=== PATIENT | male | born 1950 | race Caucasian/White ===

== ENCOUNTER 2016-11-11 13:18 | Inpatient (IN) | payer OTHER ==
[~2016-11-11] VITALS: Ht 180.3 cm; Wt 166.9 kg
--- NOTE | ~2016-11-11 | HC ---
[facility] [place] [address] CONSULTATION Name: DINORA BECKFORD Room #: 463-P ADM IN M.R.#: [id number] Admission: 11/11/16 Attend Phys: Joy Goode Discharge: Date of : 46 Report #: [id number] THIS REPORT FOR: //name// CC: FAM physician/PCP Joy Goode DATE OF SERVICE: 11/12/2016 PERSONAL PHYSICIAN: Joy Goode MD. CHIEF COMPLAINT: Left lower extremity ulceration with lymphedema. HISTORY OF PRESENT ILLNESS: This is a 66-year-old white male with a longstanding history of lymphedema and morbid obesity, who presented through the Emergency Department for cellulitis of his left leg with associated diabetic ketoacidosis. The patient himself is an extremely poor historian and states that he has had chronic edema in his lower extremities and is followed in the [facility] in [place]. The patient; however, states he admits that he is not compliant with wrapping his legs or keeping them elevated. The patient states that the left lower extremity started having increased drainage, redness and warmth several days ago, he was started on doxycycline, but then started having increasing amount of swelling, redness and further breakdown. At that time, the patient went to [facility], where he was then transferred to [facility] for further care, we were asked to assist in the care of his wound while he is here. PAST MEDICAL HISTORY: Significant for chronic lymphedema, type 2 diabetes, hypertension. CURRENT MEDICATIONS: Multiple, I reviewed the patient's medication list. DRUG ALLERGIES: None. SOCIAL HISTORY: The patient does not smoke or drink alcohol. FAMILY HISTORY: Not pertinent to current medical condition. REVIEW OF SYSTEMS: CONSTITUTIONAL: The patient denies fevers and chills prior to coming to the Emergency Department. NEUROLOGIC: The patient has overall generalized weakness and fatigue, but no isolated weakness in arms or legs. EYES: No complaints. ENT: No complaints. CARDIAC: The patient denies chest pain, palpitations; however, has chronic lower extremity edema associated with the lymphedema. [address] [place] [address] CONSULTATION Name: DINORA BECKFORD Room #: 463-P [facility] IN M.R.#: [id number] Admission: 11/11/16 Attend Phys: Joy Goode Discharge: Date of : 48 Report #: [id number] RESPIRATORY: The patient denies shortness breath, cough or wheezes. GASTROINTESTINAL: The patient complains of nausea, but no vomiting or diarrhea or abdominal pain. GENITOURINARY: The patient denies urgency or frequency. MUSCULOSKELETAL: The patient has pain in both legs. SKIN: There is a chronic lymphedema changes of both lower extremities with open ulceration on the left lower extremity and signs of cellulitis. PHYSICAL EXAMINATION: VITAL SIGNS: Stable. The patient is afebrile. GENERAL: This is alert and oriented x [address], but not to time, white male, who is in ktam-bo-umyrjatq distress secondary to pain. HEENT: Normocephalic, atraumatic. Mucous membranes are dry. Pupils are round. Sclerae white. NECK: Shows no JVD or masses. BACK: Nontender. LUNGS: Clear. HEART: Regular, without murmur. ABDOMEN: Obese, soft, nontender. EXTREMITIES: The patient moves all extremities; however, has decreased movement in lower extremities secondary to the massive amount of size. The patient has lymphatic nodules noted on bilateral lower extremities, left greater than right. On the left lower extremity, there is an open ulceration which measures 15.0 x 12.0 x 0.1 cm. There is copious amounts of yellowish serous drainage without significant foul odor, it is tender to palpation, the rest of the leg itself was warm to touch and tender, distal pulses appeared to be 1 and 2+ in dorsalis pedis and posterior tibial. Bilateral heels are intact. NEUROLOGIC: Cranial nerves 2-12 are grossly intact. Motor and sensory grossly intact. LABORATORY DATA: White count 13.4. Hemoglobin 10.5, albumin is 2.9. IMPRESSION: 1. Acute cellulitis in left lower extremity with associated ulceration. 2. Chronic lymphedema, bilateral lower extremities. 3. Type 2 diabetes. 4. Morbid obesity. 5. Protein-calorie malnutrition, moderate, with albumin 2.9. 6. Generalized debility. PLAN: At this time, we will start patient on pulse lavage daily just to clean the wound base of the slough that is located within it and then have this covered with silver nitrate moistened Kerlix to decrease the amount of excessive drainage. We will use Kerlix and Krish wrap from toes to knee after Xeroform and ABD will be placed over the wounds itself. ____ keep the patient to elevate his legs as much as possible, try to start physical and occupational therapy as [facility] [address] [place] [address] CONSULTATION Name: DINORA BECKFORD Room #: 463-P ADM IN M.R.#: [id number] Admission: 11/11/16 Attend Phys: Mathewashly Sen Russel Discharge: Date of : 48 Report #: [id number] patient can tolerate. Also spoke to patient about maximizing his oral protein and supplements for healing. We will continue all his other current medications and we will continue to follow him while he is here. By: 1315 1452 Gavino Preciado MD /nt
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
[2016-11-11 13:00] VITALS: BP 144/66
[2016-11-11 14:19] LABS: HEMATOCRIT 36.1 % (42.0-52.0); HEMOGLOBIN 11.3 gm/dL (14.0-18.0); MCH 25.7 pg (26.0-34.0); MCHC 31.2 g/dL (28.0-37.0); MCV 82.2 fL (80.0-100.0); RBC 4.39 mil/uL (4.50-6.00); WBC 17.5 thou/uL (4.0-11.0)
[2016-11-11 14:27] LABS: CALCIUM 8.9 mg/dL (8.5-10.1); CREATININE 1.6 mg/dL (0.7-1.3)
[2016-11-11] MEDS ORDERED: HYDROCODONE-AP1 EAC6 PO (14:31)
[2016-11-11] MEDS ORDERED: LASIX 40 MG TAB40 M2 PO (14:32)
[2016-11-11 14:33] LABS: ALBUMIN 2.9 g/dL (3.4-5.0); TOTAL BILIRUBIN 0.5 mg/dL (<0.1-1.0); TOTAL PROTEIN 9.4 g/dL (6.4-8.2)
[2016-11-11] MEDS ORDERED: POTASSIUM20 PO (14:38)
[2016-11-11] MEDS ORDERED: LISINOPRIL20 MG PO (14:39)
[2016-11-11] MEDS ORDERED: METFORMIN HCL500 MG PO (14:40)
[2016-11-11] MEDS ORDERED: TOPROL XL100 MG PO (14:42)
[2016-11-11] MEDS ORDERED: LEVEMIR SUBQ (14:50)
[2016-11-11 15:46] VITALS: BP 162/71
[2016-11-11 20:33] VITALS: BP 126/62
[2016-11-11 23:43] VITALS: BP 115/70
[2016-11-12 04:51] VITALS: BP 134/69
[2016-11-12 06:29] LABS: HEMATOCRIT 33.8 % (42.0-52.0); HEMOGLOBIN 10.5 gm/dL (14.0-18.0); MCH 25.1 pg (26.0-34.0); MCHC 31.1 g/dL (28.0-37.0); MCV 80.6 fL (80.0-100.0); RBC 4.19 mil/uL (4.50-6.00); RDW 23.9 % (10.5-14.5); WBC 13.4 thou/uL (4.0-11.0)
[2016-11-12 06:41] LABS: CALCIUM 8.8 mg/dL (8.5-10.1); CREATININE 1.7 mg/dL (0.7-1.3); POTASSIUM 3.6 mmol/L (3.5-5.1)
[2016-11-12 07:18] VITALS: BP 129/57
[2016-11-12 12:18] VITALS: BP 133/64
[2016-11-12 16:11] VITALS: BP 136/53
[2016-11-12 19:44] VITALS: BP 131/77
[2016-11-13 03:56] VITALS: BP 120/68
[2016-11-13 06:39] LABS: HEMATOCRIT 31.9 % (42.0-52.0); HEMOGLOBIN 10.5 gm/dL (14.0-18.0); MCV 78.6 fL (80.0-100.0); RBC 4.06 mil/uL (4.50-6.00); RDW 24.3 % (10.5-14.5); WBC 8.9 thou/uL (4.0-11.0)
[2016-11-13 06:51] LABS: CALCIUM 8.1 mg/dL (8.5-10.1); CREATININE 1.9 mg/dL (0.7-1.3); POTASSIUM 4.1 mmol/L (3.5-5.1)
[2016-11-13 07:36] VITALS: BP 124/59
[2016-11-13 11:57] VITALS: BP 146/64
[2016-11-13 16:33] VITALS: BP 152/87
[2016-11-13 18:55] VITALS: BP 158/76
[2016-11-14 04:00] VITALS: BP 110/54
[2016-11-14 05:59] LABS: HEMATOCRIT 34.6 % (42.0-52.0); HEMOGLOBIN 11.1 gm/dL (14.0-18.0); MCH 25.9 pg (26.0-34.0); MCV 80.8 fL (80.0-100.0); RBC 4.28 mil/uL (4.50-6.00); WBC 7.9 thou/uL (4.0-11.0)
[2016-11-14 06:07] LABS: CALCIUM 8.3 mg/dL (8.5-10.1); CREATININE 1.5 mg/dL (0.7-1.3); POTASSIUM 3.6 mmol/L (3.5-5.1)
[2016-11-14 08:55] VITALS: BP 108/62
[2016-11-14 12:20] VITALS: BP 108/61
[2016-11-14 17:20] VITALS: BP 115/63
[2016-11-14 19:38] VITALS: BP 114/68
[2016-11-15 04:05] VITALS: BP 117/61
[2016-11-15 09:00] VITALS: BP 121/71
[2016-11-15 09:57] LABS: HEMATOCRIT 34.1 % (42.0-52.0); HEMOGLOBIN 11.1 gm/dL (14.0-18.0); MCHC 32.6 g/dL (28.0-37.0); MCV 79.7 fL (80.0-100.0); PLATELET COUNT 305 thou/uL (150-400); RBC 4.27 mil/uL (4.50-6.00); RDW 23.8 % (10.5-14.5); WBC 7.6 thou/uL (4.0-11.0)
[2016-11-15 10:01] LABS: MANUAL DIFF YES
[2016-11-15 10:15] LABS: CALCIUM 8.8 mg/dL (8.5-10.1); CREATININE 1.4 mg/dL (0.7-1.3); POTASSIUM 3.9 mmol/L (3.5-5.1)
[2016-11-15 10:46] LABS: ABSOLUTE NEUTROPHILS 4.5 thou/uL (1.4-8.2); ANISOCYTOSIS 3+; METAMYELOCYTES 2 %; TOTAL CELL COUNT 100
[2016-11-15 10:47] LABS: MICROCYTES 2+; POLYCHROMASIA SLIGHT
[2016-11-15 12:20] VITALS: BP 128/70
[2016-11-15 16:16] VITALS: BP 120/63
[2016-11-15 19:09] VITALS: BP 112/56
[2016-11-16 04:58] LABS: CALCIUM 8.3 mg/dL (8.5-10.1); CREATININE 1.3 mg/dL (0.7-1.3); POTASSIUM 3.9 mmol/L (3.5-5.1)
[2016-11-16 05:10] LABS: HEMATOCRIT 32.7 % (42.0-52.0); HEMOGLOBIN 10.6 gm/dL (14.0-18.0); MCH 25.8 pg (26.0-34.0); MCHC 32.5 g/dL (28.0-37.0); MCV 79.3 fL (80.0-100.0); RBC 4.13 mil/uL (4.50-6.00); RDW 24.2 % (10.5-14.5); WBC 8.6 thou/uL (4.0-11.0)
[2016-11-16 08:00] VITALS: BP 143/78
[2016-11-16 12:00] VITALS: BP 116/69
[2016-11-16 16:00] VITALS: BP 131/71
[2016-11-16 20:07] VITALS: BP 120/60
[2016-11-17 05:07] VITALS: BP 125/76
[2016-11-17 08:00] VITALS: BP 116/67
[2016-11-17 11:45] VITALS: BP 113/63
[2016-11-17 16:00] VITALS: BP 134/74
[2016-11-17 19:49] VITALS: BP 135/71
[2016-11-18 03:06] LABS: GLYCOHEMOGLOBIN (HGB A1C) 9.9 % (4.8-5.6)
[2016-11-18 03:13] VITALS: BP 101/56
[2016-11-18 06:31] LABS: HEMATOCRIT 32.5 % (42.0-52.0); HEMOGLOBIN 10.4 gm/dL (14.0-18.0); MCH 25.6 pg (26.0-34.0); MCHC 32.1 g/dL (28.0-37.0); MCV 79.8 fL (80.0-100.0); RBC 4.07 mil/uL (4.50-6.00); RDW 23.2 % (10.5-14.5); WBC 10.5 thou/uL (4.0-11.0)
[2016-11-18 06:42] LABS: CALCIUM 8.5 mg/dL (8.5-10.1); CREATININE 1.2 mg/dL (0.7-1.3); POTASSIUM 3.9 mmol/L (3.5-5.1)
[2016-11-18 07:58] VITALS: BP 114/58
[2016-11-18] MEDS ORDERED: HYDROCODONE-AP1 EAC6 PO (15:14)
[2016-11-18] MEDS ORDERED: HUMALOG100 UNIT/1 SUBQ (15:15)
[2016-11-18] MEDS ORDERED: LANTUS100 UNIT/M SUBQ (15:15)
[2016-11-18] MEDS ORDERED: KEFLEX500 MG PO (15:36)
[2016-11-18 17:00] VITALS: BP 119/68
[2016-11-18 17:06] VITALS: BP 119/68
== END 2016-11-18 20:30 | DRG 871 ==
LOC: 4S 13:18 → 4W 13:18
PROVIDERS: Hospitalist; Internal Medicine Infectious Disease
DX: A41.9 Sepsis, unspecified organism (principal); E13.10 Other specified diabetes mellitus with ketoacidosis without coma; L03.116 Cellulitis of left lower limb; L97.929 Non-pressure chronic ulcer of unspecified part of left lower leg with unspecified severity; E44.0 Moderate protein-calorie malnutrition; N17.9 Acute kidney failure, unspecified; Z68.43 Body mass index [BMI] 50.0-59.9, adult; E66.01 Morbid (severe) obesity due to excess calories; I87.2 Venous insufficiency (chronic) (peripheral); E13.622 Other specified diabetes mellitus with other skin ulcer; I10 Essential (primary) hypertension; I89.0 Lymphedema, not elsewhere classified; Z87.81 Personal history of (healed) traumatic fracture
CPT/HCPCS: 10047

== ENCOUNTER 2016-11-25 17:44 | Inpatient (IN) | payer OTHER ==
[~2016-11-25] VITALS: Ht 180.3 cm; Wt 176.0 kg
--- NOTE | ~2016-11-25 | HC ---
[facility] [place] [address] CONSULTATION Name: DINORA BECKFORD Room #: 423-1 [facility] IN M.R.#: [id number] Admission: 11/25/16 Attend Phys: Joy Goode Discharge: 12/01/16 Date of : 48 Report #: [id number] THIS REPORT FOR: //name// CC: FAM unknown Joy Goode DATE OF CONSULT: 11/26/2016. ATTENDING PHYSICIAN: Dr. Goode. REASON FOR CONSULTATION: Elevated creatinine and hyperkalemia. HISTORY OF PRESENT ILLNESS: The patient with longstanding diabetes, very severe lymphedema chronically infected lower extremities, was hospitalized here last week, his infected left leg was treated, he was sent to a facility. He had been on lisinopril, furosemide, potassium, by history, although it is unclear that he was actually taking those and then was off the lisinopril and the hospital here it was restarted for discharge. His creatinine has risen from 1.2 up to 2.5, now 2.3 and potassium gómez from normal up to 6.8 on the lisinopril. He has an indwelling Ceron catheter. PAST MEDICAL HISTORY: Longstanding diabetes, peripheral neuropathy, past hypertension, apparently urinary retention and also has a history of umbilical hernia and ankle injury. REVIEW OF SYSTEMS: GENERAL: He has been feeling very weak. SKIN: He has a very severe changes, lymphedema of lower extremities with very severe thickened skin changes. He is rather obese. HEENT: Eye sight is intact. Hearing intact. No mouth ulcers. ENDOCRINE: Positive for diabetes. RESPIRATORY: Denies shortness of breath, pleuritic pain or cough, no hemoptysis. CARDIAC: Denies cardiac history. No angina or heart failure, palpitations or arrhythmias. GASTROINTESTINAL: Has very good appetite. No nausea, vomiting, diarrhea or bloody stools. GENITOURINARY: Has the indwelling catheter, I am not sure for how along. NEUROLOGIC: Has peripheral neuropathy, no history of seizure or stroke. FAMILY HISTORY: No renal disease. SOCIAL HISTORY: Former smoker. PHYSICAL EXAMINATION: GENERAL: This is a relatively pleasant and alert patient in no distress at the current time. [facility] [address] [place] [address] CONSULTATION Name: DINORA BECKFORD Room #: 423-1 DIS IN M.R.#: [id number] Admission: 11/25/16 Attend Phys: Joy Goode Discharge: 12/01/16 Date of : 46 Report #: [id number] SKIN: Remarkable for the marked changes in the lower extremities as mentioned. SKELETAL: Rather obese. HEENT: Extraocular movements are full. Vision intact. Hearing intact. Mucous membranes are moist. NECK: Supple. CHEST: Clear to auscultation. HEART: Regular. ABDOMEN: Very obese. EXTREMITIES: Show very disfigured edematous, lymphedematous legs. NEUROLOGIC: No focal findings. LABORATORY DATA: Potassium was 6.8 down to 6.0. There was absolutely no EKG changes of hyperkalemia, the creatinine is 2.5 down to 2.3, up from 1.2 a week ago. ASSESSMENT AND PLAN: Acute kidney injury. He remained on the lisinopril, the diuretics, etc. Blood pressure dropped substantially with all that, down in this is decreased renal perfusion. Of note, blood pressure substantially higher when he was in here last week, lisinopril has been discontinued. I suspect he will get better rather if he has got some Kayexalate, we will change out his Ceron. I do not believe this will amount to too terrible much we will have to keep him off of lisinopril and potassium in the future. <ELECTRONICALLY SIGNED> By: Guy Thompson MD 12/02/16 1154 1033 1138 Guy Thompson MD /nt
--- NOTE | ~2016-11-25 | EKG ---
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
--- NOTE | ~2016-11-25 | EKG ---
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
--- NOTE | ~2016-11-25 | HC ---
[facility] [place] [address] [address] CONSULTATION Name: SHAKEELDINORA Room #: 423-1 ADM IN M.R.#: [id number] Admission: 11/25/16 Attend Phys: Joy Goode Discharge: Date of : 46 Report #: [id number] THIS REPORT FOR: //name// CC: FAM unknown Joy Goode DATE OF SERVICE: 11/26/2016 CHIEF COMPLAINT: Bilateral lower extremity ulcerations. HISTORY: This is a 66-year-old male patient with whom I am familiar, who was recently hospitalized and has been readmitted. I have been asked to see him with regard to lymphedema and lower extremity ulcerations. The patient currently lives at [facility], was noted to have high potassium as well as a history of diabetes. He has been admitted for ongoing medical management. I have been asked to see him with regard to specifically wound care. The patient notes swelling and some pain in his lower extremities. He is noting some mild shortness of breath at this time and some pain in his legs. PAST MEDICAL HISTORY: Positive for lymphedema of lower extremities, hyperkalemia, type 2 diabetes mellitus, history of DKA. MEDICATIONS: Include Keflex, hydrocodone, insulin, Lasix, potassium, lisinopril, metformin, metoprolol. SOCIAL HISTORY: Negative for alcohol or tobacco use or recreational drug use. FAMILY HISTORY: Noncontributory. REVIEW OF SYSTEMS: CONSTITUTIONAL: Has fever, chills, weight loss. NEUROLOGICAL: The patient has focal weakness. ENT: The patient denies earache, nasal drainage or sore throat. CARDIOVASCULAR: The patient denies chest pain, palpitations or diaphoresis. PULMONARY: The patient denies cough, shortness of breath. GASTROINTESTINAL: The patient denies nausea, diarrhea or abdominal pain or gas. ORTHOPEDIC: The patient notes pain, swelling, drainage of bilateral lower extremities. GENITOURINARY: The patient denies frequency or urgency of urination. Denies dysuria. He does complain of scrotal swelling. NEUROLOGICAL: The patient has focal weakness, numbness and tingling. PSYCHIATRIC: The patient denies anxiety, irritability or depression. Other systems in a 12-point review of systems are negative. PHYSICAL EXAMINATION: VITAL SIGNS: At this time include pulse 99, respiratory rate 20, blood pressure [address] [address] CONSULTATION Name: DINORA BECKFORD Room #: 423-1 ADM IN M.R.#: [id number] Admission: 11/25/16 Attend Phys: Joy Goode Discharge: Date of : 46 Report #: [id number] 85/45, temperature 98.6. GENERAL: This is a chronically ill-appearing male patient who appears to be in mild discomfort. HEENT: Normocephalic. Nose and throat are clear. NECK: Supple. LUNGS: Diminished. HEART: Regular rhythm. ABDOMEN: Obese, nontender. GENITOURINARY: The patient a very large scrotum. The penis is unable to be fully visualized due to the scrotal edema. EXTREMITIES: Lower extremities demonstrate edema up through his mid thighs. He has draining ulcerations on the posterior portions of both calves; neither area appeared to be overtly infected. The patient's distal pulses are palpable, but diminished due to the edema. CLINICAL IMPRESSION: 1. Ulcerations bilateral calves. 2. Lymphedema, bilateral lower extremities. 3. Diabetes mellitus. 4. Hyperkalemia. RECOMMENDATIONS: At this point in time, we will recommend a solution of silver nitrate to be applied with moist gauze to the open areas and lower extremities. Recommend lymphedema therapy for control lymphedema of both lower extremities as well as the scrotal region. I appreciate being asked to see the patient in consultation. <ELECTRONICALLY SIGNED> By: Garrick Hackett MD 11/27/16 0911 1719 2247 Garrick Hackett MD /nt
[~2016-11-25 17:44] MED LIST: HUMALOG100 UNIT/1 SUBQ; HYDROCODONE-AP1 EAC6 PO; KEFLEX500 MG PO; LANTUS100 UNIT/M SUBQ; LASIX 40 MG TAB40 M2 PO; LEVEMIR SUBQ; LISINOPRIL20 MG PO; METFORMIN HCL500 MG PO; POTASSIUM20 PO; TOPROL XL100 MG PO
[2016-11-25 17:54] VITALS: BP 101/39
[2016-11-25 18:23] LABS: HEMATOCRIT 33.2 % (42.0-52.0); HEMOGLOBIN 10.4 gm/dL (14.0-18.0); MCH 24.9 pg (26.0-34.0); MCHC 31.3 g/dL (28.0-37.0); MCV 79.6 fL (80.0-100.0); PLATELET COUNT 361 thou/uL (150-400); RBC 4.17 mil/uL (4.50-6.00); RDW 22.4 % (10.5-14.5); WBC 10.3 thou/uL (4.0-11.0)
[2016-11-25 18:31] LABS: MANUAL DIFF YES
[2016-11-25 18:32] LABS: CALCIUM 8.7 mg/dL (8.5-10.1); CREATININE 2.5 mg/dL (0.7-1.3)
[2016-11-25 18:34] LABS: POTASSIUM 6.8 mmol/L (3.5-5.1)
[2016-11-25 19:19] LABS: ABG SAMPLE TYPE VENOUS; BE(vivo) -11.4 mmol/L (-2 to +3); HCO3 15.9 mmol/L (22.0-26.0); LACTATE 2.94 mmol/L (0.5-2.0); O2(CT) 10.6 mL/dL (15.0-23.0); O2Hb VENOUS 63.2 (65.0-85.0); PCO2 VENOUS 41.3 mmHg (41.0-51.0); PO2 VENOUS 39.6 mmHg (35.0-45.0); sO2 VENOUS 63.4 % (65.0-85.0); tCO2 17.2 mmol/L (24.0-30.0)
[2016-11-25 19:21] LABS: STICK SITE VENOUS
[2016-11-25 19:24] LABS: ABSOLUTE NEUTROPHILS 8.9 thou/uL (1.4-8.2); TOTAL CELL COUNT 100
[2016-11-25 19:25] LABS: ANISOCYTOSIS 2+; MICROCYTES 1+
[2016-11-25 20:51] VITALS: BP 91/44
[2016-11-25 21:04] LABS: POTASSIUM 5.9 mmol/L (3.5-5.1)
[2016-11-25 21:05] LABS: CALCIUM 8.1 mg/dL (8.5-10.1); CREATININE 2.4 mg/dL (0.7-1.3)
[2016-11-26 04:00] VITALS: BP 114/54
[2016-11-26 05:23] LABS: MCH 25.2 pg (26.0-34.0); MCHC 31.3 g/dL (28.0-37.0); MCV 80.5 fL (80.0-100.0); RBC 3.97 mil/uL (4.50-6.00); RDW 22.4 % (10.5-14.5); WBC 9.1 thou/uL (4.0-11.0)
[2016-11-26 05:30] LABS: CALCIUM 8.4 mg/dL (8.5-10.1); CREATININE 2.3 mg/dL (0.7-1.3)
[2016-11-26 05:33] LABS: ALBUMIN 2.1 g/dL (3.4-5.0); PHOSPHORUS 6.9 mg/dL (2.5-4.9)
[2016-11-26 08:00] VITALS: BP 85/45
[2016-11-26 20:29] VITALS: BP 100/50
[2016-11-27 03:37] VITALS: BP 104/44
[2016-11-27 06:44] LABS: ALBUMIN 2.1 g/dL (3.4-5.0); CALCIUM 8.3 mg/dL (8.5-10.1); CREATININE 2.4 mg/dL (0.7-1.3); PHOSPHORUS 7.5 mg/dL (2.5-4.9); POTASSIUM 5.6 mmol/L (3.5-5.1)
[2016-11-27 08:10] VITALS: BP 106/60
[2016-11-27 16:01] VITALS: BP 117/54
[2016-11-27 19:50] VITALS: BP 103/48
[2016-11-28 03:46] VITALS: BP 107/54
[2016-11-28 04:23] LABS: ALBUMIN 2.1 g/dL (3.4-5.0); CALCIUM 8.1 mg/dL (8.5-10.1); CREATININE 2.5 mg/dL (0.7-1.3); POTASSIUM 5.1 mmol/L (3.5-5.1)
[2016-11-28 08:07] VITALS: BP 109/53
[2016-11-28 16:07] VITALS: BP 103/51
[2016-11-28 20:00] VITALS: BP 126/58
[2016-11-29 04:30] VITALS: BP 125/79
[2016-11-29 05:35] LABS: ALBUMIN 2.1 g/dL (3.4-5.0); CALCIUM 8.4 mg/dL (8.5-10.1); CREATININE 2.2 mg/dL (0.7-1.3); PHOSPHORUS 6.5 mg/dL (2.5-4.9); POTASSIUM 4.1 mmol/L (3.5-5.1)
[2016-11-29 07:45] VITALS: BP 100/46
[2016-11-29 16:28] VITALS: BP 90/48
[2016-11-29 19:23] VITALS: BP 99/48
[2016-11-30 03:50] VITALS: BP 114/53
[2016-11-30 05:51] LABS: ALBUMIN 2.2 g/dL (3.4-5.0); CALCIUM 8.6 mg/dL (8.5-10.1); PHOSPHORUS 5.7 mg/dL (2.5-4.9); POTASSIUM 3.8 mmol/L (3.5-5.1)
[2016-11-30 07:24] VITALS: BP 111/66
[2016-11-30 16:13] VITALS: BP 125/69
[2016-11-30 20:00] VITALS: BP 111/62
[2016-12-01 05:12] LABS: HEMATOCRIT 33.9 % (42.0-52.0); HEMOGLOBIN 10.7 gm/dL (14.0-18.0); MCH 25.6 pg (26.0-34.0); MCHC 31.7 g/dL (28.0-37.0); PLATELET COUNT 338 thou/uL (150-400); RBC 4.18 mil/uL (4.50-6.00); RDW 22.2 % (10.5-14.5); WBC 5.3 thou/uL (4.0-11.0)
[2016-12-01 05:14] LABS: MANUAL DIFF YES
[2016-12-01 05:21] LABS: CALCIUM 8.9 mg/dL (8.5-10.1); CREATININE 1.8 mg/dL (0.7-1.3); POTASSIUM 3.1 mmol/L (3.5-5.1)
[2016-12-01 05:30] VITALS: BP 120/58
[2016-12-01 08:15] VITALS: BP 133/65
[2016-12-01 08:27] LABS: ABSOLUTE NEUTROPHILS 3.3 thou/uL (1.4-8.2); ANISOCYTOSIS 2+; HYPOCHROMASIA 1+; MICROCYTES 1+; POLYCHROMASIA OCCASIONAL; TOTAL CELL COUNT 100
[2016-12-01 13:24] LABS: URINE BILIRUBIN NEGATIVE (Negative); URINE BLOOD 2+ (Negative); URINE COLOR YELLOW; URINE GLUCOSE-RANDOM* NEGATIVE (Negative); URINE KETONES NEGATIVE (Negative); URINE LEUKOCYTES-REFLEX 3+ (Negative); URINE PROTEIN (DIPSTICK) NEGATIVE (Negative); URINE SPECIFIC GRAVITY 1.015 (1.003-1.035); URINE UROBILINOGEN 0.2 E.U./dl (0.2-1.0)
[2016-12-01 13:30] LABS: SQUAMOUS None Seen /LPF (0-3)
[2016-12-01 13:31] LABS: CASTS None Seen /LPF (None Seen); CRYSTALS None Seen /LPF (None Seen); YEAST-REFLEX Present (None Seen)
[2016-12-01 13:32] LABS: URINE POTASSIUM-RANDOM* 16.7 mmol/L
[2016-12-01] MEDS ORDERED: DOXYCYCLINE 10100 MG PO (14:53)
[2016-12-01] MEDS ORDERED: ENOXAPARIN40 MG/0.1 SUBQ (14:53)
[2016-12-01] MEDS ORDERED: AUGMENTIN 875875 MG PO (14:53)
[2016-12-01] MEDS ORDERED: CHLORTHALIDONE25 MG PO (14:56)
[2016-12-01] MEDS ORDERED: LISINOPRIL20 MG PO (14:56)
[2016-12-01] MEDS ORDERED: ALDACTONE50 MG PO (14:56)
[2016-12-01] MEDS ORDERED: LANTUSSOLASTAR SUBQ (14:56)
[2016-12-01] MEDS ORDERED: POTASSIUM20 PO (14:59)
[2016-12-01] MEDS ORDERED: TORSEMIDE20 MG PO (14:59)
[2016-12-01] MEDS ORDERED: HYDROCODON-ACE1 EAC7 PO (16:31)
== END 2016-12-01 16:42 | DRG 871 ==
LOC: ER 17:44 → EROBS 18:53 → 4E 18:53
PROVIDERS: Emergency Medicine; Hospitalist; Internal Medicine; Internal Medicine Nephrology
DX: A41.9 Sepsis, unspecified organism (principal); N17.0 Acute kidney failure with tubular necrosis; G93.41 Metabolic encephalopathy; L03.116 Cellulitis of left lower limb; E87.1 Hypo-osmolality and hyponatremia; Z68.43 Body mass index [BMI] 50.0-59.9, adult; L03.115 Cellulitis of right lower limb; E87.5 Hyperkalemia; E66.01 Morbid (severe) obesity due to excess calories; G47.33 Obstructive sleep apnea (adult) (pediatric); L98.499 Non-pressure chronic ulcer of skin of other sites with unspecified severity; E11.42 Type 2 diabetes mellitus with diabetic polyneuropathy; I89.0 Lymphedema, not elsewhere classified; E11.22 Type 2 diabetes mellitus with diabetic chronic kidney disease; I12.9 Hypertensive chronic kidney disease with stage 1 through stage 4 chronic kidney disease, or unspecified chronic kidney disease; N18.2 Chronic kidney disease, stage 2 (mild); Z90.49 Acquired absence of other specified parts of digestive tract; Z79.899 Other long term (current) drug therapy; Z87.81 Personal history of (healed) traumatic fracture; Z87.891 Personal history of nicotine dependence
CPT/HCPCS: 10183

== ENCOUNTER → 2016-12-16 | Outpatient (CLI) | payer OTHER ==
[~2016-12-16] MED LIST changes: +ALDACTONE50 MG PO; +AUGMENTIN 875875 MG PO; +CHLORTHALIDONE25 MG PO; +DOXYCYCLINE 10100 MG PO; +ENOXAPARIN40 MG/0.1 SUBQ; +HYDROCODON-ACE1 EAC7 PO; +LANTUSSOLASTAR SUBQ; +TORSEMIDE20 MG PO
== END ==
LOC: HYPER 12-11 10:38
DX: E11.622 Type 2 diabetes mellitus with other skin ulcer (principal); L97.811 Non-pressure chronic ulcer of other part of right lower leg limited to breakdown of skin; L97.821 Non-pressure chronic ulcer of other part of left lower leg limited to breakdown of skin; I89.0 Lymphedema, not elsewhere classified; E11.40 Type 2 diabetes mellitus with diabetic neuropathy, unspecified; E66.01 Morbid (severe) obesity due to excess calories; Z79.4 Long term (current) use of insulin; Z87.891 Personal history of nicotine dependence

== ENCOUNTER → 2016-12-30 | Outpatient (CLI) | payer OTHER | LOC: HYPER 07:04 | DX: S81.801D Unspecified open wound, right lower leg, subsequent encounter (principal); E11.628 Type 2 diabetes mellitus with other skin complications; E11.40 Type 2 diabetes mellitus with diabetic neuropathy, unspecified; Z79.4 Long term (current) use of insulin; E66.01 Morbid (severe) obesity due to excess calories; I89.0 Lymphedema, not elsewhere classified; Z68.42 Body mass index [BMI] 45.0-49.9, adult; X58.XXXD Exposure to other specified factors, subsequent encounter; Z87.891 Personal history of nicotine dependence ==

== ENCOUNTER → 2017-01-13 | Outpatient (CLI) | payer OTHER | LOC: HYPER 07:09 | DX: E11.622 Type 2 diabetes mellitus with other skin ulcer (principal); L97.821 Non-pressure chronic ulcer of other part of left lower leg limited to breakdown of skin; I89.0 Lymphedema, not elsewhere classified; E11.40 Type 2 diabetes mellitus with diabetic neuropathy, unspecified; E66.01 Morbid (severe) obesity due to excess calories; Z79.4 Long term (current) use of insulin; Z68.42 Body mass index [BMI] 45.0-49.9, adult; Z87.891 Personal history of nicotine dependence ==

== ENCOUNTER → 2017-01-28 | Outpatient (CLI) | payer OTHER | LOC: HYPER 07:26 | DX: E11.622 Type 2 diabetes mellitus with other skin ulcer (principal); L97.821 Non-pressure chronic ulcer of other part of left lower leg limited to breakdown of skin; I89.0 Lymphedema, not elsewhere classified; E11.40 Type 2 diabetes mellitus with diabetic neuropathy, unspecified; E66.01 Morbid (severe) obesity due to excess calories; Z79.4 Long term (current) use of insulin; Z68.42 Body mass index [BMI] 45.0-49.9, adult; Z87.891 Personal history of nicotine dependence ==

== ENCOUNTER → 2017-02-23 | Outpatient (CLI) | payer OTHER | LOC: HYPER 02-18 06:55 | DX: E11.622 Type 2 diabetes mellitus with other skin ulcer (principal); L97.821 Non-pressure chronic ulcer of other part of left lower leg limited to breakdown of skin; I89.0 Lymphedema, not elsewhere classified; E11.40 Type 2 diabetes mellitus with diabetic neuropathy, unspecified; E66.01 Morbid (severe) obesity due to excess calories; Z79.4 Long term (current) use of insulin; Z68.42 Body mass index [BMI] 45.0-49.9, adult; Z87.891 Personal history of nicotine dependence ==